=== PATIENT | female | born 1930 | race Caucasian/White ===

== ENCOUNTER 2017-02-21 17:22 | Inpatient (IN) | payer MEDICARE, BC ==
[2017-02-21] MEDS ORDERED: SODIUM CHLORIDE 0.9% 500 ML 500 ML IV ONE (17:52)
[2017-02-21] MEDS ORDERED: SODIUM CHLORIDE 0.9% 1000ML 1,000 ML IV SCH (18:30)
[2017-02-21] MEDS ORDERED: WARFARIN SODIUM 5 MG TAB PO SCH (18:30)
[2017-02-21] MEDS: SODIUM CHLORIDE 0.9% FLUSH 10 ML SOL IV SCH (19:24)
[2017-02-21] MEDS ORDERED: ZOLPIDEM TARTRATE 5 MG TAB PO PRN (19:54)
[2017-02-21] MEDS: CARVEDILOL 12.5 MG TAB PO SCH (20:33)
[2017-02-21] MEDS ORDERED: ROSUVASTATIN CALCIUM 10 MG TAB PO SCH (21:00)
[2017-02-21] MEDS ORDERED: LISINOPRIL 5 MG TAB PO SCH (21:00)
[2017-02-21 23:04] VITALS: RESP 20; TEMP 98
[2017-02-22] MEDS: SODIUM CHLORIDE 0.9% FLUSH 10 ML SOL IV SCH ×2 (05:50→09:24)
[2017-02-22] MEDS ORDERED: LEVOTHYROXINE SODIUM 50 MCG TAB PO SCH ×2 (07:00→09:30)
[2017-02-22 07:04] LABS: BASOPHILS % (AUTO) 1 % (0-3); EOSINOPHILS % (AUTO) 6 % (0-9); HEMATOCRIT 34 % (35-47); MEAN CORPUSCULAR HGB CONC 34.3 gm/dl (32.0-36.0); MEAN CORPUSCULAR VOLUME 89 fL (81-99); MONOCYTES % (AUTO) 8.7 % (0-12); NEUTROPHILS % (AUTO) 62.7 % (37-80)
[2017-02-22 07:09] LABS: CALCIUM 7.9 mg/dl (8.5-10.1)
[2017-02-22] MEDS ORDERED: POTASSIUM CHLORIDE 10 MEQ TER PO SCH (09:00)
[2017-02-22] MEDS ORDERED: ASPIRIN EC 81 MG PO SCH (09:00)
[2017-02-22] MEDS ORDERED: FUROSEMIDE 20 MG TAB PO SCH (09:00)
[2017-02-22] MEDS: CARVEDILOL 12.5 MG TAB PO SCH (09:24)
[2017-02-22 10:10] VITALS: BP 91/59; PULSE 75; O2SAT 95
[2017-02-22] MEDS ORDERED: ROSUVASTATIN 40MG TAB PO SCH (21:00)
[2017-02-26] MEDS ORDERED: WARFARIN SODIUM 7.5 MG TAB PO SCH (18:21)
== END 2017-02-22 11:05 | disposition home or self-care (01) | DRG 316 ==
LOC: ACUTE CARE 17:22
PROVIDERS: ADMIT Family Medicine; ATTEND Family Medicine
DX: I95.9 Hypotension, unspecified (principal); I50.9 Heart failure, unspecified; I48.91 Unspecified atrial fibrillation; R53.1 Weakness; E78.5 Hyperlipidemia, unspecified; Z95.1 Presence of aortocoronary bypass graft
CPT/HCPCS: 36415; 80048; 83880; 84484; 85025